=== PATIENT | female | born 1980 | race Two or more races ===

== ENCOUNTER 2022-06-18 13:14 | Inpatient (IN) | payer SELFPAY ==
[2022-06-18] VITALS (9 sets, daily range): BP systolic 100–117; BP diastolic 59–74
[~2022-06-18] VITALS: Ht 152.4 cm; Wt 59.2 kg
[2022-06-18] MEDS ORDERED: SODIUM CHLORIDE 0.9% 1,000 ML IV ONE (13:30)
[2022-06-18 13:51] LABS: Hematocrit 15.6 % (36.0-46.0); Lymphocytes # (auto) 2.4 10 ^3/uL (0.4-5.4); Mean Corpuscular Hemoglobin 14.5 pg (28.0-32.0); Monocytes # (auto) 0.6 10 ^3/uL (0-1.3); Nucleated Red Blood Cells % 0.2 %
[2022-06-18 13:53] LABS: Basophils # (auto) 0.1 10 ^3/uL (0-0.2); Basophils % (auto) 0.9 % (0.0-2.0); Eosinophils # (auto) 0.1 10 ^3/uL (0-0.8); Eosinophils % (auto) 1.7 % (0.0-7.0); Lymphocytes % (auto) 35.4 % (10.0-50.0); Mean Corpuscular Hgb Conc. 27.6 g/dL (32.0-36.0); Mean Corpuscular Volume 52.5 fL (80.0-100.0); Monocytes % (auto) 9.3 % (0.0-12.0); Neutrophils # (auto) 3.6 10 ^3/uL (1.6-8.6); Neutrophils % (auto) 52.7 % (37.0-80.0); Red Blood Cells 2.97 10^6/uL (4.0-5.20); White Blood Cell 6.8 10^3/uL (4.4-10.8)
[2022-06-18 14:07] LABS: Red Cell Distribution Width 20.9 % (11.8-14.3)
[2022-06-18 14:11] LABS: Hemoglobin 4.3 g/dL (12.2-16.2)
[2022-06-18 14:13] LABS: Albumin 3.3 g/dL (3.4-5.0); Calcium 8.8 mg/dL (8.5-10.1); Potassium 3.8 mmol/L (3.5-5.1)
[2022-06-18 14:16] LABS: BUN/Creatinine Ratio 26.2 (10.0-20.0); Bilirubin, Total 0.3 mg/dL (0.2-1.0)
[2022-06-18 14:55] LABS: Urine Bacteria FEW /hpf (None Seen); Urine Blood Negative /uL (Negative); Urine Specific Gravity 1.005 (1.001-1.035); Urine WBC 1 /hpf (0 - 5)
[2022-06-18] MEDS ORDERED: MORPHINE SULFATE INJ 2 MG/ml SYRG IV PRN (18:45)
[2022-06-18] MEDS ORDERED: ONDANSETRON HCL 4 MG/2 ML VIAL IV PRN (18:45)
[2022-06-19] MEDS: SODIUM CHLORIDE 0.9% 1,000 ML IV SCH ×2 (00:24→18:18)
[2022-06-19 00:50] LABS: Hematocrit 24.1 % (36.0-46.0); Hemoglobin 7.3 g/dL (12.2-16.2)
[2022-06-19 05:46] LABS: Eosinophils # (auto) 0.1 10 ^3/uL (0-0.8); Hemoglobin 7.4 g/dL (12.2-16.2); Neutrophils # (auto) 3.8 10 ^3/uL (1.6-8.6)
[2022-06-19 05:49] LABS: Basophils # (auto) 0.1 10 ^3/uL (0-0.2); Basophils % (auto) 1.1 % (0.0-2.0); Eosinophils % (auto) 1.3 % (0.0-7.0); Lymphocytes % (auto) 30.8 % (10.0-50.0); Mean Corpuscular Hemoglobin 18.6 pg (28.0-32.0); Mean Corpuscular Hgb Conc. 30.9 g/dL (32.0-36.0); Mean Corpuscular Volume 60.4 fL (80.0-100.0); Monocytes # (auto) 0.5 10 ^3/uL (0-1.3); Monocytes % (auto) 8.3 % (0.0-12.0); Neutrophils % (auto) 58.5 % (37.0-80.0); Nucleated Red Blood Cells % 0.2 %; Red Blood Cells 3.97 10^6/uL (4.0-5.20); White Blood Cell 6.4 10^3/uL (4.4-10.8)
[2022-06-19 05:52] LABS: Red Cell Distribution Width 28.9 % (11.8-14.3)
[2022-06-19 06:05] LABS: Potassium 3.2 mmol/L (3.5-5.1)
[2022-06-19 06:10] LABS: BUN/Creatinine Ratio 17.6 (10.0-20.0); Calcium 8.4 mg/dL (8.5-10.1)
[2022-06-19 06:12] LABS: Bilirubin, Total 0.5 mg/dL (0.2-1.0); Total Protein 6.7 g/dL (6.4-8.2)
[2022-06-19] MEDS: PANTOPRAZOLE 40 MG/10 ML VIAL INJ IV SCH (09:51)
[2022-06-19] MEDS ORDERED: LACTULOSE 20Gm/30ML SOLN PO SCH (12:00)
[2022-06-19 12:11] LABS: Hematocrit 25.7 % (36.0-46.0); Hemoglobin 7.8 g/dL (12.2-16.2)
[2022-06-19] MEDS: LACTULOSE 20Gm/30ML SOLN PO SCH ×3 (12:30→23:58)
[2022-06-19 13:15] VITALS: BP 104/59
[2022-06-19 13:30] VITALS: BP 101/57
[2022-06-19] MEDS ORDERED: fentaNYL CITRATE 100 MCG/2 ML VL ONE (14:35)
[2022-06-19] MEDS ORDERED: MIDAZOLAM HCL 2MG/2ML 2ml VIAL (1mg/ml) ONE (14:35)
[2022-06-19] MEDS ORDERED: LIDOCAINE VISCOUS 2% 15ML UD ONE (14:53)
[2022-06-19] MEDS: diphenhdrAMINE HCL 50 MG/1 ML VL ONE ×2 (14:54→14:56)
[2022-06-19 17:35] VITALS: BP 103/56
[2022-06-19 18:16] LABS: Hematocrit 29.4 % (36.0-46.0)
[2022-06-19 20:00] VITALS: BP 94/51
[2022-06-19] MEDS: DOCUSATE SOD 100 MG CAP PO SCH (21:19)
[2022-06-19 22:00] VITALS: BP 94/51
[2022-06-20] MEDS: SODIUM CHLORIDE 0.9% 1,000 ML IV SCH (01:06)
[2022-06-20 05:00] VITALS: BP 93/57
[2022-06-20] MEDS: LACTULOSE 20Gm/30ML SOLN PO SCH ×3 (05:24→17:32)
[2022-06-20 06:15] LABS: Basophils # (auto) 0 10 ^3/uL (0-0.2); Basophils % (auto) 0.4 % (0.0-2.0); Eosinophils # (auto) 0.2 10 ^3/uL (0-0.8); Eosinophils % (auto) 2.9 % (0.0-7.0); Hematocrit 27.6 % (36.0-46.0); Hemoglobin 8.3 g/dL (12.2-16.2); Lymphocytes # (auto) 2.1 10 ^3/uL (0.4-5.4); Lymphocytes % (auto) 27.9 % (10.0-50.0); Mean Corpuscular Hemoglobin 20.2 pg (28.0-32.0); Mean Corpuscular Hgb Conc. 30.2 g/dL (32.0-36.0); Mean Corpuscular Volume 66.6 fL (80.0-100.0); Monocytes # (auto) 0.9 10 ^3/uL (0-1.3); Monocytes % (auto) 11.3 % (0.0-12.0); Neutrophils # (auto) 4.3 10 ^3/uL (1.6-8.6); Neutrophils % (auto) 57.5 % (37.0-80.0); Nucleated Red Blood Cells % 0.3 %; Red Blood Cells 4.14 10^6/uL (4.0-5.20); White Blood Cell 7.6 10^3/uL (4.4-10.8)
[2022-06-20 06:33] LABS: Calcium 8.3 mg/dL (8.5-10.1); Potassium 3.6 mmol/L (3.5-5.1)
[2022-06-20] MEDS: PANTOPRAZOLE 40 MG/10 ML VIAL INJ IV SCH (08:34)
[2022-06-20] MEDS: DOCUSATE SOD 100 MG CAP PO SCH ×3 (08:34→22:00)
[2022-06-20 08:58] VITALS: BP 105/67
[2022-06-20 22:00] VITALS: BP 102/59
[2022-06-21 05:00] VITALS: BP 94/52
[2022-06-21] MEDS: LACTULOSE 20Gm/30ML SOLN PO SCH ×3 (05:19→09:17)
[2022-06-21 05:52] LABS: Basophils # (auto) 0.1 10 ^3/uL (0-0.2); Nucleated Red Blood Cells % 0.2 %
[2022-06-21 05:54] LABS: Eosinophils # (auto) 0.4 10 ^3/uL (0-0.8); Eosinophils % (auto) 4.8 % (0.0-7.0); Hematocrit 30.4 % (36.0-46.0); Hemoglobin 9.2 g/dL (12.2-16.2); Lymphocytes # (auto) 2.5 10 ^3/uL (0.4-5.4); Lymphocytes % (auto) 30.8 % (10.0-50.0); Mean Corpuscular Hemoglobin 19.8 pg (28.0-32.0); Mean Corpuscular Hgb Conc. 30.4 g/dL (32.0-36.0); Monocytes # (auto) 0.7 10 ^3/uL (0-1.3); Neutrophils # (auto) 4.5 10 ^3/uL (1.6-8.6); Neutrophils % (auto) 54.4 % (37.0-80.0); Red Blood Cells 4.67 10^6/uL (4.0-5.20); White Blood Cell 8.2 10^3/uL (4.4-10.8)
[2022-06-21 06:19] LABS: Red Cell Distribution Width 32.6 % (11.8-14.3)
[2022-06-21 06:24] LABS: Albumin 2.8 g/dL (3.4-5.0); Calcium 8.4 mg/dL (8.5-10.1); Potassium 3.2 mmol/L (3.5-5.1)
[2022-06-21 06:28] LABS: BUN/Creatinine Ratio 16.7 (10.0-20.0); Bilirubin, Total 0.4 mg/dL (0.2-1.0); Total Protein 6.3 g/dL (6.4-8.2)
[2022-06-21 09:00] VITALS: BP_SYST 136; BP_SYST 95; BP_DIAS 52; BP_DIAS 83
[2022-06-21] MEDS: DOCUSATE SOD 100 MG CAP PO SCH (10:00)
[2022-06-21] MEDS ORDERED: PANTOPRAZOLE 40 MG TAB PO SCH (10:00)
[2022-06-21] MEDS ORDERED: POTASSIUM EFFERVESENT TAB 25 MEQ PO ONE (10:45)
[2022-06-21 13:00] VITALS: BP 98/52
[2022-06-21] MEDS ORDERED: PANT40T PO (13:42)
== END 2022-06-21 14:25 | disposition home or self-care (01) | DRG 812 ==
LOC: ER 13:14 → OVERFLOW 18:41 → WEST WING 06-19 16:03
PROVIDERS: ADMIT Nurse Practitioner Family; ATTEND Internal Medicine Pulmonary Disease
PROC: 30233N1 Transfusion of Nonautologous Red Blood Cells into Peripheral Vein, Percutaneous Approach (ICD-10-PCS; 2022-06-18)
PROC: 0DB98ZX Excision of Duodenum, Via Natural or Artificial Opening Endoscopic, Diagnostic (ICD-10-PCS; 2022-06-19)
PROC: 0DB78ZX Excision of Stomach, Pylorus, Via Natural or Artificial Opening Endoscopic, Diagnostic (ICD-10-PCS; principal; 2022-06-19 14:50)
DX: D64.9 Anemia, unspecified (principal); K29.70 Gastritis, unspecified, without bleeding; D75.839 Thrombocytosis, unspecified; E87.6 Hypokalemia; K59.00 Constipation, unspecified; K64.9 Unspecified hemorrhoids; Z20.822 Contact with and (suspected) exposure to COVID-19; K31.7 Polyp of stomach and duodenum; N28.89 Other specified disorders of kidney and ureter; Z80.0 Family history of malignant neoplasm of digestive organs; Z79.899 Other long term (current) drug therapy; Z82.49 Family history of ischemic heart disease and other diseases of the circulatory system; Z83.3 Family history of diabetes mellitus
CPT/HCPCS: 36415; 36430; 43239; 74176; 80048; 80053; 81001; 81025; 83735; 84132; 84702; 85014; 85018; 85025; 86850; 86900; 86901; 86920; 93005; 96360; C9113; G0378; J2250

== ENCOUNTER → 2022-06-24 | Outpatient (CLI) | payer SELFPAY ==
[~2022-06-24] MED LIST: PANT40T PO
[2022-06-24 08:48] LABS: Basophils # (auto) 0 10 ^3/uL (0-0.2); Eosinophils # (auto) 0.2 10 ^3/uL (0-0.8); Eosinophils % (auto) 2.8 % (0.0-7.0); Hematocrit 32.6 % (36.0-46.0); Mean Corpuscular Volume 64.5 fL (80.0-100.0); Monocytes # (auto) 0.7 10 ^3/uL (0-1.3); Nucleated Red Blood Cells % 0.1 %
[2022-06-24 08:50] LABS: Basophils % (auto) 0.2 % (0.0-2.0); Hemoglobin 10.2 g/dL (12.2-16.2); Lymphocytes % (auto) 30.8 % (10.0-50.0); Mean Corpuscular Hemoglobin 20.1 pg (28.0-32.0); Mean Corpuscular Hgb Conc. 31.1 g/dL (32.0-36.0); Neutrophils # (auto) 3.7 10 ^3/uL (1.6-8.6); Neutrophils % (auto) 56.2 % (37.0-80.0); Red Blood Cells 5.06 10^6/uL (4.0-5.20); White Blood Cell 6.6 10^3/uL (4.4-10.8)
[2022-06-24 09:14] LABS: BUN/Creatinine Ratio 28.8 (10.0-20.0); Calcium 9.1 mg/dL (8.5-10.1); Potassium 3.9 mmol/L (3.5-5.1)
[2022-06-24 09:16] LABS: Red Cell Distribution Width 33.4 % (11.8-14.3)
== END | disposition home or self-care (01) ==
LOC: LAB 08:30
PROVIDERS: ATTEND Internal Medicine
DX: E87.6 Hypokalemia (principal); D64.9 Anemia, unspecified
CPT/HCPCS: 36415; 80048; 85025

== ENCOUNTER 2023-10-10 00:47 | Emergency (ER) | payer MEDICAID, OTHER ==
[~2023-10-10] VITALS: Ht 152.4 cm; Wt 49.5 kg
[2023-10-10] MEDS: ACYCLOVIR 400 MG TAB PO ONE (01:15)
[2023-10-10] MEDS: predniSONE 20 MG TAB PO ONE (01:15)
[2023-10-10] MEDS ORDERED: VALA1TAB PO (01:34)
[2023-10-10] MEDS ORDERED: PRED20TA2 PO (01:34)
[2023-10-10 01:50] VITALS: BP 120/75; TEMP 98
[2023-10-10 01:55] VITALS: PULSE 16; RESP 16; O2SAT 100
== END 2023-10-10 01:55 | disposition home or self-care (01) ==
LOC: ER 00:47
DX: G51.0 Bell's palsy (principal); R20.0 Anesthesia of skin; Z79.899 Other long term (current) drug therapy